=== PATIENT | female | born 1985 | race Caucasian/White ===

== ENCOUNTER → 2017-07-07 | Outpatient (CLI) | payer OTHER ==
[~2017-07-07] MED LIST: /MOM400 PO; ACET50TA PO; ANUS2.5C2 PR; COLA50CA3 PO; IBUP80TA PO
[2017-07-07 13:39] LABS: BASO % 0.5 % (0.0-1.0); EOS # 0.2 10^3/uL (0.0-0.50); IMMATURE GRANULOCYTE % 0.4 % (0-0); LYMPH # 1.7 10^3/uL (1.5-4.5); LYMPH % 22.9 % (24.0-44.0); MEAN CORPUSCULAR HEMOGLOBIN 28.6 pg (27.0-33.0); MEAN CORPUSCULAR HGB CONC 33.8 g/dl (32.0-36.5); MEAN CORPUSCULAR VOLUME 84.6 fl (80.0-96.0); MONO # 0.3 10^3/uL (0.0-0.8); MONO % 4.6 % (0.0-5.0); NEUTROPHILS # 5.2 10^3/uL (1.8-7.7); NEUTROPHILS % 69.6 % (36.0-66.0); PLATELET COUNT, AUTOMATED 252 10^3/uL (150-450); RED CELL DISTRIBUTION WIDTH 13.6 % (11.5-14.5); WHITE BLOOD COUNT 7.4 10^3/uL (4.0-10.0)
[2017-07-07 14:18] LABS: HBsAg Prenatal NEGATIVE (NEGATIVE)
== END ==
LOC: M SMT 10:24
PROVIDERS: ATTEND Obstetrics & Gynecology
DX: Z34.82 Encounter for supervision of other normal pregnancy, second trimester (principal)

== ENCOUNTER → 2017-07-25 | Outpatient (CLI) | payer OTHER ==
--- NOTE | 2017-07-26 07:36 | REP ---
Clinical: Anatomical evaluation. Comparison: None . Findings: Examination demonstrates a single live intrauterine in variable presentation. motion is identified by technologist. Placenta is noted posteriorly and grade zero without evidence for placenta previa or abruption. Uterine synechia noted along the left side of the uterus. Amniotic fluid volume is normal. Cervix measures 4.4 cm in length and appears closed. No evidence for nuchal cord. Gestational age by LMP 20 weeks 6 days with CHIDI 12/06/2017 . Gestational age by current measurements 20 weeks 6 days with CHIDI 12/06/2017 . FHR equals 127 beats per minute. BPD 4.9 cm 20 weeks 6 days HC 18.4 cm 20 weeks 5 days AC 16.8 cm 21 weeks 6 days FL 3.6 cm 21 weeks 2 days HL 3.4 cm 21 weeks 5 days HC/AC ratio 1.09 Estimated weight 427 grams ( 67th percentile). Anatomical assessment demonstrates normal structures including cranium, choroid plexus, cavum, cerebellum/posterior fossa, facial features, lungs, four-chamber heart/ventricular outflow tracts, diaphragm, stomach, cord insertion/three-vessel cord, kidneys/bladder, and extremities. Impression: 1. Single live intrauterine in variable presentation demonstrating appropriate interval growth. 2. Limited evaluation of the spine. Otherwise complete and normal anatomical assessment appreciated. No gross abnormalities are identified. 3. Left-sided uterine synechia Signed by Сергей Caro MD 07/26/2017 07:27 A
== END ==
LOC: M RAD 09:52
PROVIDERS: ATTEND Obstetrics & Gynecology
DX: Z36.9 Encounter for antenatal screening, unspecified (principal); Z3A.20 20 weeks gestation of pregnancy

== ENCOUNTER → 2017-10-12 | Outpatient (CLI) | payer OTHER ==
[2017-10-12 15:51] LABS: HEMATOCRIT 36.8 % (36.0-47.0); HEMOGLOBIN 12.4 g/dl (12.0-16.0); MEAN CORPUSCULAR HGB CONC 33.7 g/dl (32.0-36.5); MEAN CORPUSCULAR VOLUME 86.2 fl (80.0-96.0); PLATELET COUNT, AUTOMATED 235 10^3/uL (150-450); RED BLOOD COUNT 4.27 10^6/uL (4.00-5.40); RED CELL DISTRIBUTION WIDTH 13.4 % (11.5-14.5); WHITE BLOOD COUNT 10.5 10^3/uL (4.0-10.0)
== END ==
LOC: M SMT 12:08
DX: Z36.89 Encounter for other specified antenatal screening (principal); Z3A.00 Weeks of gestation of pregnancy not specified
CPT/HCPCS: 85027

== ENCOUNTER 2017-11-27 17:26 | Inpatient (IN) | payer OTHER ==
[2017-11-27 19:09] LABS: HEMATOCRIT 38.6 % (36.0-47.0); HEMOGLOBIN 12.9 g/dl (12.0-16.0); MEAN CORPUSCULAR HEMOGLOBIN 28.6 pg (27.0-33.0); MEAN CORPUSCULAR HGB CONC 33.4 g/dl (32.0-36.5); MEAN CORPUSCULAR VOLUME 85.6 fl (80.0-96.0); PLATELET COUNT, AUTOMATED 247 10^3/uL (150-450); RED BLOOD COUNT 4.51 10^6/uL (4.00-5.40); RED CELL DISTRIBUTION WIDTH 13.4 % (11.5-14.5); WHITE BLOOD COUNT 15.4 10^3/uL (4.0-10.0)
[2017-11-27] MEDS ORDERED: MOM 30ML SUSPENSION UDC PO (20:00)
[2017-11-27] MEDS ORDERED: METHYLERGONOVINE MALEATE 0.2 MG TAB PO (20:00)
[2017-11-27] MEDS ORDERED: IBUPROFEN 800 MG TAB PO (20:00)
[2017-11-27] MEDS ORDERED: DOCUSATE SODIUM 100 MG CAP PO (20:00)
[2017-11-27] MEDS ORDERED: ACETAMINOPHEN 500 MG TAB PO (20:00)
[2017-11-27] MEDS ORDERED: DIBUCAINE 1% OINTMENT 30GM TOP (20:00)
[2017-11-27] MEDS ORDERED: MEASLES,MUMPS,RUBELLA VACCINE INJ (MMR-II) (90707) SC (20:00)
[2017-11-27] MEDS ORDERED: ANUSOL HC CREAM 30GM TOP (20:00)
[2017-11-27] MEDS ORDERED: PROMETHAZINE 25 MG TAB PO (20:00)
[2017-11-27] MEDS ORDERED: RHOGAM 300 MCG (1500 IU) INJ (J2790) IM (20:00)
[2017-11-28] MEDS: OXYTOCIN INJ 10 UNITS/ML VIAL (J2590) IM ×2 (07:22→07:32)
[2017-11-28] MEDS: PRENATAL VITAMINS CHEWABLE TABLET PO (09:00)
[2017-11-29] MEDS: PRENATAL VITAMINS CHEWABLE TABLET PO (08:46)
== END 2017-11-29 14:03 | disposition home or self-care (01) | DRG 560 ==
LOC: M LDI 17:26 → M OBS 21:54
PROVIDERS: Obstetrics & Gynecology
PROC: 10E0XZZ Delivery of Products of Conception, External Approach (ICD-10-PCS; principal; 2017-11-27)
DX: O34.211 Maternal care for low transverse scar from previous cesarean delivery (principal); Z37.0 Single live birth; Z3A.38 38 weeks gestation of pregnancy

== ENCOUNTER → 2019-08-07 | Outpatient (CLI) | payer OTHER ==
[~2019-08-07] MED LIST changes: -/MOM400 PO; -ACET50TA PO; +IBUP-1114 PO; +MAPA500T17 PO; +MAPA500T2 PO; +MILK10SU PO; +PRENTAB9 PO
[2019-08-07 17:33] LABS: BASO % 0.3 % (0.0-1.0); EOS # 0.1 10^3/uL (0.0-0.5); EOS % 1.2 % (0.0-3.0); HEMATOCRIT 37.7 % (36.0-47.0); HEMOGLOBIN 12.3 g/dl (12.0-15.5); LYMPH # 2.8 10^3/uL (1.5-5.0); LYMPH % 24.4 % (24.0-44.0); MEAN CORPUSCULAR HEMOGLOBIN 29.2 pg (27.0-33.0); MEAN CORPUSCULAR HGB CONC 32.6 g/dl (32.0-36.5); MEAN CORPUSCULAR VOLUME 89.5 fl (80.0-96.0); MONO # 0.8 10^3/uL (0.0-0.8); MONO % 6.6 % (0.0-5.0); NEUTROPHILS # 7.7 10^3/uL (1.5-8.5); NEUTROPHILS % 66.8 % (36.0-66.0); PLATELET COUNT, AUTOMATED 242 10^3/uL (150-450); RED BLOOD COUNT 4.21 10^6/uL (4.00-5.40); WHITE BLOOD COUNT 11.5 10^3/uL (4.0-10.0)
[2019-08-07 19:35] LABS: HIV 1&2 SCREEN CENTAUR NEGATIVE (NEGATIVE); RUBELLA IgG QUALITATIVE IMMUNE (IMMUNE)
== END ==
LOC: M SMT 13:39
PROVIDERS: ATTEND Obstetrics & Gynecology
DX: Z34.83 Encounter for supervision of other normal pregnancy, third trimester (principal); Z36.89 Encounter for other specified antenatal screening

== ENCOUNTER 2019-09-25 06:30 | Inpatient (IN) | payer OTHER ==
[~2019-09-25] VITALS: Ht 160 cm; Wt 67.2 kg
[2019-09-25 06:52] VITALS: BP 124/61
[2019-09-25 07:02] VITALS: BP 112/59
[2019-09-25 07:17] VITALS: BP 117/71
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
[2019-09-25 09:31] VITALS: BP 127/64
[2019-09-25] MEDS ORDERED: DOCUSATE SODIUM 100 MG CAP PO PRN (13:45)
[2019-09-25] MEDS ORDERED: MEASLES,MUMPS,RUBELLA VACCINE INJ (MMR-II) (90707) SC SCH (13:45)
[2019-09-25] MEDS ORDERED: ACETAMINOPHEN 500 MG TAB PO PRN (13:45)
[2019-09-25] MEDS ORDERED: RHOGAM 300 MCG (1500 IU) INJ (J2790) IM SCH (13:45)
[2019-09-25] MEDS ORDERED: DIBUCAINE 1% OINTMENT 30GM TOP PRN (13:45)
[2019-09-25] MEDS ORDERED: METHYLERGONOVINE MALEATE 0.2 MG TAB PO PRN (13:45)
[2019-09-25] MEDS ORDERED: IBUPROFEN 800 MG TAB PO PRN (13:45)
[2019-09-25] MEDS ORDERED: ACETAMINOPHEN TAB 650MG DOSE (2X325MG) PO PRN (13:45)
[2019-09-25] MEDS ORDERED: IBUPROFEN 600 MG TAB PO PRN (13:45)
[2019-09-25 18:00] VITALS: BP 118/60
[2019-09-26 06:14] VITALS: BP 104/64
[2019-09-26] MEDS ORDERED: PRENATAL VITAMINS CHEWABLE TABLET PO SCH (09:00)
--- NOTE | 2019-09-26 12:47 | DN ---
DATE: 09/25/2019 PREDELIVERY DIAGNOSIS: 40 and 3/7 weeks gestation, labor. POSTDELIVERY DIAGNOSIS: Delivered. PROCEDURE: Spontaneous vaginal delivery. FURNITURE FINISHER: Dr. Fuad Saavedra ANESTHESIA: None. ESTIMATED BLOOD LOSS: 300 mL. FINDINGS: A 6-pound, 13-ounce female infant, scores 7 and 9. DELIVERY SUMMARY: The patient arrived at the hospital and almost immediately delivered in the bed a 6-pound, 13-ounce female infant, scores 7 and 9 with no delivery anesthesia. There was no time to start an IV line. The cord was doubly clamped and cut. Placenta delivered spontaneously and appeared to be intact. There were no vaginal lacerations present. Good hemostasis was noted. Sponge counts were correct. The patient opted take her placenta with her.
== END 2019-09-26 13:45 | disposition home or self-care (01) | DRG 560 ==
LOC: M LDO 06:30 → M LDI 06:56 → M OBS 09:31
PROVIDERS: ADMIT Specialist; ATTEND Specialist
PROC: 10E0XZZ Delivery of Products of Conception, External Approach (ICD-10-PCS; principal; 2019-09-25)
DX: O48.0 Post-term pregnancy (principal); Z37.0 Single live birth; Z3A.40 40 weeks gestation of pregnancy